=== PATIENT | female | born 1990 | race Caucasian/White ===

== ENCOUNTER 2021-08-15 16:32 | Emergency (ER) | payer SELFPAY ==
[2021-08-15] MEDS ORDERED: Ketorolac Tromethamine 30 MG/ML VIAL ONE (17:41)
[2021-08-15] MEDS ORDERED: Morphine 4 MG/ML VIAL ONE ×2 (17:41→19:32)
[2021-08-15] MEDS ORDERED: Midazolam HCl 2 mg/2 ml Vial ONE (18:02)
[2021-08-15] MEDS ORDERED: Lidocaine 1% w/Epinephrine 1:100K 20 ML VIAL ONE (18:43)
== END 2021-08-15 19:43 | disposition home or self-care (01) ==
LOC: ERS 16:32
DX: L02.211 Cutaneous abscess of abdominal wall (principal); E11.9 Type 2 diabetes mellitus without complications; F17.200 Nicotine dependence, unspecified, uncomplicated
CPT/HCPCS: 10061; 96374; 96375; 96376; J1885; J2250; J2270

== ENCOUNTER 2021-08-16 17:08 | Emergency (ER) | payer SELFPAY ==
[~2021-08-16 17:08] MED LIST: Iopamidol-370 76% 500 ML 1 ML ONE
[2021-08-16] MEDS ORDERED: Vancomycin 1 GM/200 ML BAG ONE ×2 (17:42→19:17)
[2021-08-16] MEDS ORDERED: Morphine 10 MG/ML VIAL ONE (17:55)
[2021-08-16 17:57] LABS: #Eosinphils 0.1 thou/uL (0.0-0.7); #Lymphocytes 3.5 thou/uL (1.20-3.40); #Monocytes 1.1 thou/uL (0.11-0.59); #Neutrophils 7.7 thou/uL (1.40-6.50); %Basophils 0.3 % (0.0-1.0); %Monocytes 8.8 % (0.0-10.0); %Neutrophils 61.8 % (42.0-75.0); Hemoglobin 14.1 g/dL (12.0-16.0); Mean Corpuscular HGB CONC 34.2 g/dL (32.0-36.0); Mean Corpuscular Hemoglobin 31.5 pg (27.0-31.0); Mean Corpuscular Volume 92.1 fL (78.0-98.0); Mean Platelet Volume 9.2 fL (7.4-10.4); Platelet Count 286 thou/uL (130-400); RBC Distribution Width 11.4 % (11.5-14.5); Red Blood Cell (RBC) Count 4.46 mill/uL (4.20-5.40); White Blood Cell (WBC) Count 12.4 thou/uL (4.8-10.8)
[2021-08-16 18:18] LABS: ALT (SGPT) 37 U/L (8-55); AST (SGOT) 22 U/L (5-34); Albumin 3.5 g/dL (3.5-5.0); Alkaline Phosphatase 80 U/L (40-110); Anion Gap 11 mmol/L (10-20); BUN (Urea Nitrogen) 9 mg/dL (7.0-18.7); Bilirubin, Total 0.5 mg/dL (0.2-1.2); Calc. Creatinine Clearance 0 mL/min (70-130); Calcium 9.3 mg/dL (7.8-10.44); Carbon Dioxide 24 mmol/L (22-29); Chloride 102 mmol/L (98-107); Globulin 3.6 g/dL (2.4-3.5); Glucose 230 mg/dL (70-105); Protein, Total 7.1 g/dL (6.0-8.3); Sodium 133 mmol/L (136-145)
[2021-08-16 18:20] LABS: BHCG - Serum Negative (NEGATIVE); Pregs Control Background? CLEAR/WHITE (CLR/WHITE); Pregs Control Bar Appear? YES (CONTROL BAR)
[2021-08-16] MEDS ORDERED: Ketorolac Tromethamine 30 MG/ML VIAL ONE (19:10)
[2021-08-16] MEDS ORDERED: Clindamycin/D5W 900 mg/50 ml Premix Bag ONE ×3 (19:10→19:16)
[2021-08-16] MEDS ORDERED: Morphine 4 MG/ML VIAL ONE ×2 (19:10→21:14)
[2021-08-16] MEDS ORDERED: Clindamycin/D5W 600 mg/50 ml Premix Bag ONE (19:14)
[2021-08-17] MEDS ORDERED: Ondansetron PF 4 MG/2 ML Vial ONE (00:03)
== END 2021-08-16 21:49 | disposition home or self-care (01) ==
LOC: ERS 17:08
DX: L03.311 Cellulitis of abdominal wall (principal); E11.9 Type 2 diabetes mellitus without complications; F17.200 Nicotine dependence, unspecified, uncomplicated; Z79.899 Other long term (current) drug therapy
CPT/HCPCS: 74177; 80053; 83605; 84703; 85025; 94760; 96365; 96366; 96367; 96375; 96376; J1885; J2270; J2405; J3370; J3490; Q9967